=== PATIENT | male | born 1975 | race Hispanic/Latino ===

== ENCOUNTER 2018-07-31 13:10 | Emergency (ER) | payer SELFPAY ==
[2018-07-31 13:18] VITALS: RESP 16; O2SAT 100
[2018-07-31 14:05] LABS: BASO # 0.1 K/uL (0.0-0.2); BASO % 0.9 % (0.0-2.0); EOS # 0.1 K/uL (0.0-0.7); EOS % 1.5 % (0.0-4.0); HEMOGLOBIN 13.7 g/dL (12.0-18.0); LYMPH # 1.7 K/uL (1.0-4.3); LYMPH % 17.8 % (20.0-40.0); MEAN CELL VOLUME 79.3 fl (80.0-94.0); MEAN CORPUSCULAR HEMOGLOBIN 25.8 pg (27.0-31.0); MEAN CORPUSCULAR HGB CONC 32.6 g/dL (33.0-37.0); MEAN PLATELET VOLUME 6.7 fl (7.2-11.7); MONO # 0.9 K/uL (0.0-0.8); MONO % 9.5 % (0.0-10.0); NEUT # 6.9 K/uL (1.8-7.0); NEUT % 70.3 % (50.0-75.0); RBC 5.3 Mil/uL (4.40-5.90); RED CELL DISTRIBUTION WIDTH 14.9 % (11.5-14.5); WHITE BLOOD COUNT 9.8 K/uL (4.8-10.8)
[2018-07-31 14:07] LABS: INR 1.1
[2018-07-31 14:09] LABS: PARTIAL THROMBOPLASTIN TIME 38.2 Seconds (25.6-37.1)
--- NOTE | 2018-07-31 14:09 | ED PDOC ---
HPI: Abdomen Time Seen by Provider: 07/31/18 13:23 Chief Complaint (Nursing): Abdominal Pain Chief Complaint (Provider): Abdominal Pain History Per: Patient History/Exam Limitations: no limitations Onset/Duration Of Symptoms: Other (2 weeks) Current Symptoms Are (Timing): Constant Location Of Pain/Discomfort: Epigastric Quality Of Discomfort: Sharp Associated Symptoms: Nausea, Loss Of Appetite Additional Complaint(s): 43 y/o male presents to the ED complaining of constant sharp epigastric ab dominal pain with exacerbation for the past 2 weeks associated with loss of appetite and mild nausea. Patient states he went to [facility] last week and was advise to come to the ER which he is doing now. He reports he has lost 10-15 pounds unintentionally the last month. Patient denies diarrhea, melena, or any radiation. PMD: none provided Past Medical History Reviewed: Historical Data, Nursing Documentation, Vital Signs Vital Signs: Last Vital Signs Temp 98.0 F 07/31/18 13:14 Pulse 70 07/31/18 13:14 Resp 16 07/31/18 13:14 BP 119/80 07/31/18 13:14 Pulse Ox 100 07/31/18 13:14 Primary Care Provider: FAMILY PROVIDER,NO - Surgical History Surgical History: No Surg Hx - Family History Family History: States: Unknown Family Hx - Social History Alcohol: Occasional (none for the last 2 weeks.) - Home Medications Home Medications: Ambulatory Orders Medication Instructions Recorded Omeprazole 40 mg PO DAILY #20 capsule. 07/31/18 Sucralfate [Carafate] 1 gm PO TID 7 Days dose 07/31/18 - Allergies Allergies/Adverse Reactions: Allergies Allergy/AdvReac Type Severity Reaction Status Date / Time No Known Allergies Allergy Verified 07/31/18 13:14 Review of Systems ROS Statement: Except As Marked, All Systems Reviewed And Found Negative Constitutional: Positive for: Weight loss. Negative for: Fever Cardiovascular: Negative for: Chest Pain Respiratory: Negative for: Shortness of Breath Gastrointestinal: Positive for: Nausea, Abdominal Pain Neurological: Negative for: Dizziness Physical Exam - Reviewed Nursing Documentation Reviewed: Yes Vital Signs Reviewed: Yes - Physical Exam Appears: Positive for: Well, Non-toxic, No Acute Distress Head Exam: Positive for: ATRAUMATIC, NORMAL INSPECTION, NORMOCEPHALIC Skin: Positive for: Normal Color, Warm, Dry Eye Exam: Positive for: EOMI, Normal appearance, PERRL ENT: Positive for: Normal ENT Inspection Neck: Positive for: Normal, Painless ROM, Supple Cardiovascular/Chest: Positive for: Regular Rate, Rhythm. Negative for: Murmur Respiratory: Positive for: Normal Breath Sounds. Negative for: Wheezing Gastrointestinal/Abdominal: Positive for: Normal Exam, Soft, Tenderness (Epigastric.) Back: Positive for: Normal Inspection. Negative for: L CVA Tenderness, R CVA Tenderness Extremity: Positive for: Normal ROM Neurological/Psych: Positive for: Awake, Alert, Normal Tone, Oriented (x3). Negative for: Motor/Sensory Deficits - Laboratory Results Result Diagrams: 07/31/18 13:55 07/31/18 13:55 Lab Results: PT 13.0 Seconds (9.8-13.1) 07/31/18 13:55 INR 1.1 07/31/18 13:55 - ECG O2 Sat by Pulse Oximetry: 100 Medical Decision Making Medical Decision Making: Time:1344 Impression: Plan: -EKG -CMP -Lipase -Troponin -CBC -Partial thromboplastin -Prothrombin -Protonix INJ -US 1507 US FINDINGS: LIVER: Measures 13.6 cm in length. Patent portal and hepatic venous systems. Portal venous flow: Hepatopetal. echogenicity of the liver parenchyma. No mass. No intrahepatic bile duct dilatation. GALLBLADDER: Unremarkable. No gallstones. COMMON BILE DUCT: Measures 2.0 mm. No stones. No dilatation. PANCREAS: Unremarkable as visualized. No mass. No ductal dilatation. RIGHT KIDNEY: Measures 5.1 x 10.0 cm in length. Normal echogenicity. No calculus, mass, or hydronephrosis. AORTA: No aneurysmal dilatation. IVC: Unremarkable. OTHER FINDINGS: None . IMPRESSION: No significant or acute findings to account for/ related to the clinical presentation. [address] FINDINGS: LOWER THORAX: No visible consolidation, pleural effusion, or pneumothorax. LIVER: Hypoattenuation of the liver compatible with hepatic steatosis. GALLBLADDER AND BILE DUCTS: Unremarkable. PANCREAS: Unremarkable. SPLEEN: Unremarkable. ADRENALS: Unremarkable. KIDNEYS AND URETERS: The kidneys enhance symmetrically. No hydronephrosis or obstructing renal calculus. BLADDER: Urinary bladder wall thickening. REPRODUCTIVE: Unremarkable. APPENDIX: The appendix appears within normal limits of caliber. No secondary signs of acute appendicitis. BOWEL: The stomach is nondistended. The bowel loops appear within normal limits of caliber without evidence of intestinal obstruction. Rectal wall thickening. PERITONEUM: No significant free fluid. No definite free air. LYMPH NODES: No bulky lymphadenopathy identified. VASCULATURE: No aortic aneurysm. No atherosclerotic calcification or mural plaque present. BONES: No acute osseous abnormality is detected. OTHER FINDINGS: None. IMPRESSION: Rectal wall thickening; correlate clinically for possibility of proctitis. Urinary bladder wall thickening; recommend correlation with urinalysis. Hypoattenuation of the liver compatible with hepatic steatosis. improved after protonix in ED, abdomen nontender, vitals normal Needs outpatient GI followup, initiate PPI and carafate, referred to [facility] and GI, indications for return extensively discussed, along w/ diet modifications and discussed importance of GI eval to r/o potential serious causes of symptoms including malignancy. - Scribe Attestation: Documented by Reji Abel, acting as a scribe for Bonilla Cain III. Provider Scribe Attestation: All medical record entries made by the Scribe were at my direction and persona lly dictated by me. I have reviewed the chart and agree that the record accurately reflects my personal performance of the history, physical exam, medical decision making, and the department course for this patient. I have also personally directed, reviewed, and agree with the discharge instructions and disposition. Disposition - Clinical Impression Clinical Impression: Epigastric pain - Patient ED Disposition Is Patient to be Admitted: No Counseled Patient/Family Regarding: Studies Performed, Diagnosis, Need For Followup, Rx Given - Disposition Referrals: [facility] [Outside] Bonilla Tinsley MD, PhD [Staff Provider] - Disposition: Routine/Home Disposition Time: 18:55 Condition: IMPROVED Additional Instructions: Followup with [facility] and GI specialist for further testing and possible endoscopy. Avoid alcohol and spicy food. Take medications as directed. Return to ER for any worse or new symptoms. Recommend outpatient colonoscopy for rectal wall thickening and endoscopy for upper abdominal pain. Prescriptions: Omeprazole 40 mg PO DAILY #20 capsule. Sucralfate [Carafate] 1 gm PO TID 7 Days dose Instructions: Acute Abdomen (Belly Pain), Adult (DC) Forms: [employer] (Armenian)
[2018-07-31 14:24] LABS: ALB/GLOB RATIO 1.5 (1.0-2.1); ALBUMIN 4.5 g/dL (3.5-5.0); ALT/SGPT 26 U/L (21-72); AST/SGOT 28 U/L (17-59); BLOOD UREA NITROGEN 9 mg/dl (9-20); CALCIUM 9.4 mg/dL (8.4-10.2); GFR NON-AFRICAN AMERICAN > 60; LIPASE 76 U/L (23-300)
[2018-07-31] MEDS ORDERED: Iohexol 240 (50 ml) PO ONE (15:43)
[2018-07-31] MEDS ORDERED: Iohexol 240 (50 ml) ONE (16:06)
--- NOTE | 2018-07-31 16:10 | US ---
Date of service: 07/31/2018 HISTORY: epigastric pain eval RUQ and aorta COMPARISON: None. TECHNIQUE: Sonographic evaluation of the right upper quadrant of the abdomen. FINDINGS: LIVER: Measures 13.6 cm in length. Patent portal and hepatic venous systems. Portal venous flow: Hepatopetal. echogenicity of the liver parenchyma. No mass. No intrahepatic bile duct dilatation. GALLBLADDER: Unremarkable. No gallstones. COMMON BILE DUCT: Measures 2.0 mm. No stones. No dilatation. PANCREAS: Unremarkable as visualized. No mass. No ductal dilatation. RIGHT KIDNEY: Measures 5.1 x 10.0 cm in length. Normal echogenicity. No calculus, mass, or hydronephrosis. AORTA: No aneurysmal dilatation. IVC: Unremarkable. OTHER FINDINGS: None . IMPRESSION: No significant or acute findings to account for/ related to the clinical presentation.
[2018-07-31] MEDS ORDERED: Iohexol 300 100 ML IJ ONE (17:39)
[2018-07-31] MEDS ORDERED: Sodium Chloride 0.9% 50 ML IV ONE (17:39)
--- NOTE | 2018-07-31 18:07 | CARD ---
APPROVED REPORT Date of service: 07/31/2018 EKG Measurement Heart [id number] <Conclusion> Normal sinus rhythm Possible Left atrial enlargement Borderline ECG
--- NOTE | 2018-07-31 18:43 | CT ---
PROCEDURE: CT Abdomen and Pelvis with oral and IV contrast. HISTORY: upper abd pain COMPARISON: Ob limited ultrasound performed 07/31/18 TECHNIQUE: Contiguous axial images of the abdomen and pelvis. Oral and IV contrast was administered. Coronal and Sagittal reformats generated and reviewed. Contrast dose: 90 mL Omnipaque 300 IV Radiation dose: Total exam DLP = 187.01 mGy-cm. This CT exam was performed using one or more of the following dose reduction techniques: Automated exposure control, adjustment of the mA and/or kV according to patient size, and/or use of iterative reconstruction technique. FINDINGS: LOWER THORAX: No visible consolidation, pleural effusion, or pneumothorax. LIVER: Hypoattenuation of the liver compatible with hepatic steatosis. GALLBLADDER AND BILE DUCTS: Unremarkable. PANCREAS: Unremarkable. SPLEEN: Unremarkable. ADRENALS: Unremarkable. KIDNEYS AND URETERS: The kidneys enhance symmetrically. No hydronephrosis or obstructing renal calculus. BLADDER: Urinary bladder wall thickening. REPRODUCTIVE: Unremarkable. APPENDIX: The appendix appears within normal limits of caliber. No secondary signs of acute appendicitis. BOWEL: The stomach is nondistended. The bowel loops appear within normal limits of caliber without evidence of intestinal obstruction. Rectal wall thickening. PERITONEUM: No significant free fluid. No definite free air. LYMPH NODES: No bulky lymphadenopathy identified. VASCULATURE: No aortic aneurysm. No atherosclerotic calcification or mural plaque present. BONES: No acute osseous abnormality is detected. OTHER FINDINGS: None. IMPRESSION: Rectal wall thickening; correlate clinically for possibility of proctitis. Urinary bladder wall thickening; recommend correlation with urinalysis. Hypoattenuation of the liver compatible with hepatic steatosis.
[2018-07-31 19:26] VITALS: BP 124/82; PULSE 72; TEMP 98.2
== END 2018-07-31 19:25 | disposition home or self-care (01) ==
LOC: H.ER 13:10
DX: R10.13 Epigastric pain (principal)
CPT/HCPCS: 74177; 76705; 80053; 83690; 84484; 85025; 85610; 85730; 93005; 96374; 99283; C9113; Q9966; Q9967